=== PATIENT | male | born 2000 | race African-American/Black ===

== ENCOUNTER 2020-01-15 10:42 | Emergency (ER) | payer BC ==
[~2020-01-15] VITALS: Ht 180.3 cm; Wt 56.2 kg
[2020-01-15 10:57] VITALS: BP 124/74
[2020-01-15] MEDS ORDERED: ZYRTEC10 M2 PO (11:08)
[2020-01-15] MEDS ORDERED: FLONASE 0.05%50 MCG NARES (11:08)
== END 2020-01-15 11:20 | disposition home or self-care (01) ==
LOC: ER 10:42
DX: J30.9 Allergic rhinitis, unspecified (principal); M79.10 Myalgia, unspecified site; R51 Headache; F17.210 Nicotine dependence, cigarettes, uncomplicated